=== PATIENT | female | born 1935 | race Caucasian/White ===

== ENCOUNTER → 2016-07-28 | Day surgery (SDC) | payer MEDICARE, OTHER ==
[~2016-07-28] MED LIST: ASPIRIN81 MG PO; DIAZEPAM2 MG PO; FLECAINIDE ACET50 MG PO; LIPITOR40 MG PO; LISINOPRIL40 MG PO; METOPROLOL TART25 MG PO; MILK OF MA400 MG/5 M PO; NEXIUM40 MG PO; SYNTHROID25 MCG PO; TYLENOL EXTRA500 MG PO
== END | disposition home or self-care (01) ==
LOC: SDCH 07:59
DX: K29.50 Unspecified chronic gastritis without bleeding (principal); K44.9 Diaphragmatic hernia without obstruction or gangrene; K57.30 Diverticulosis of large intestine without perforation or abscess without bleeding; I10 Essential (primary) hypertension; M19.90 Unspecified osteoarthritis, unspecified site; Z90.49 Acquired absence of other specified parts of digestive tract; Z90.710 Acquired absence of both cervix and uterus; Z87.19 Personal history of other diseases of the digestive system; Z86.73 Personal history of transient ischemic attack (TIA), and cerebral infarction without residual deficits
CPT/HCPCS: J2704